=== PATIENT | male | born 2000 | race Caucasian/White ===

== ENCOUNTER 2022-08-26 22:58 | Emergency (ER) | payer OTHER, SELFPAY ==
[2022-08-26 23:03] VITALS: BP 136/94; PULSE 119; RESP 18; TEMP 37; O2SAT 96; BMI 36.8
--- NOTE | 2022-08-26 23:22 | ED_ITS ---
HPI - Extremity Injury (Lower) General Time Seen by Provider: 23:23 Date Seen: 08/26/22 Chief Complaint: Extremity Pain/Injury, Lower Stated Complaint: slapshot on left foot from hokey game. Time Seen by Provider: 08/26/22 23:18 Source: patient and RN notes reviewed Mode of arrival: wheelchair Limitations: no limitations History of Present Illness HPI Narrative: Sav is a very pleasant 22-year-old male who was playing hockey tonight when he took a slap shot from approximately a foot away into the dorsum of his left foot. He was able to continue to skate but notes that it was hard to bear weight after the game. He notes no other injury. He shows the pain to be at the very dorsum of the foot over the navicular and cuboid areas. He notes that movement or bearing weight definitely increases his pain. He has not yet taken anything for discomfort. Related Data Home Medications Medication Instructions Recorded Confirmed No Known Home Medications 08/26/22 08/26/22 Allergies Allergy/AdvReac Type Severity Reaction Status Date / Time azithromycin [From Zithromax] Allergy hives Verified 08/26/22 23:08 Review of Systems Status of ROS: Reports: 6 or more systems reviewed and unremarkable except as noted in History and below [facility] Medical History No significant past medical history Surgical History No significant past surgical history Social History Smoking Status: Never smoker Second hand tobacco smoke exposure: No How often do you have a drink containing alcohol: never AUDIT-C Alcohol total score: 0 Non-prescribed substance use: marijuana (any form) Exam Narrative: Exam Narrative: Patient is a very pleasant well-spoken young man. He is not in any acute distress. Examination of the left foot shows some erythema and mild edema noted over the navicular. I do not palpate any step-offs. No pain with palpation over the malleoli bilaterally. Mild discomfort noted over the lateral dorsal foot. Sensation and motor is intact. Const: Vital Signs, click to edit/add: Vital Signs - 24 hr 08/26/22 23:03 Temperature 98.6 F Pulse Rate [Left P ulse Oximeter] 119 H Respiratory Rate 18 Blood Pressure [Ri ght Upper Arm] 136/94 H Pulse Oximetry 96 Oxygen Delivery Me thod Room Air Documenting provider has reviewed patient's vital signs: yes Course Vital Signs Vital signs: Initial Vital Signs Temperature 98.6 F 08/26/22 23:03 Temperature Source Temporal Artery Scan 08/26/22 23:03 Pulse Rate 119 H 08/26/22 23:03 Respiratory Rate 18 08/26/22 23:03 Blood Pressure 136/94 H 08/26/22 23:03 Blood Pressure Mean 108 08/26/22 23:03 Blood Pressure Position Sitting 08/26/22 23:03 Pulse Oximetry 96 08/26/22 23:03 Oxygen Delivery Method 08/26/22 23:03 Vital Signs Temperature 98.6 F 08/26/22 23:03 Pulse Rate 119 H 08/26/22 23:03 Respiratory Rate 18 08/26/22 23:03 Blood Pressure 136/94 H 08/26/22 23:03 Pulse Oximetry 96 08/26/22 23:03 Oxygen Delivery Method 08/26/22 23:03 Temperature 98.6 F 08/26/22 23:03 Pulse Rate 119 H 08/26/22 23:03 Respiratory Rate 18 08/26/22 23:03 Blood Pressure 136/94 H 08/26/22 23:03 Pulse Oximetry 96 08/26/22 23:03 Oxygen Delivery Method 08/26/22 23:03 MDM - Extremity Injury (Lower) MDM Narrative Medical decision making narrative: 1. Soft tissue injury left foot-at this time no evidence of fracture. However he is having difficulties with weight-bearing. Will place him on crutches for the next 48 hours. He may use ibuprofen or Tylenol as needed for discomfort. Recommend elevation and icing when he is not active. Follow-up with orthopedics if he is not noting improvement over the next week. 2. Disposition-home back to [place]. Medical Records Attestation: I reviewed the patient's medical records. Imaging Data Left foot x-ray: Attestation: I have reviewed the pertinent imaging results. My impression: No obvious fractures Radiologist's impression: No acute fractures or malalignment. Bipartite lateral sesamoid. Joint spaces are maintained. Soft tissues are unremarkable. Discharge Plan Discharge Clinical Impression: Injury of foot, left Patient Disposition: Home, Self-Care Condition: Improved Additional Instructions: Crutches for the next 48 hours. You may bear some weight on the foot. Ibuprofen or Tylenol as needed for pain. If you are not improving I would like you to see Orthopedics. You may need another x-ray. The phone number to make an appointment is [phone]. Prescriptions: No Action No Known Home Medications Follow Up/Referrals: Provider,Not a Local [Primary Care Provider] - Stand Alone Forms: [facility] Info Instructions
--- NOTE | 2022-08-26 23:23 | CRLHL7_ITS ---
For Patients: As a result of the Century Cures Act, medical imaging exams and procedure reports are released immediately into your electronic medical record. You may view this report before your referring provider. If you have questions, please contact your health care provider. INDICATION: Trauma. TECHNIQUE: Left foot 3 views. COMPARISON: None. FINDINGS/IMPRESSION: No acute fractures or malalignment. Bipartite lateral sesamoid. Joint spaces are maintained. Soft tissues are unremarkable. Dictated by Phill Rayo MD @ 08/27/2022 12:16:40 AM (Electronically Signed)
[2022-08-27 01:01] VITALS: BP 125/84; PULSE 95; RESP 18; TEMP 36.6; O2SAT 96
[2022-08-27 01:03] VITALS: BP 125/84; PULSE 95; RESP 18; TEMP 36.6
--- NOTE | 2022-08-27 01:03 | ED.NURSE ---
pt. fitted with crutches and cam walker.
== END 2022-08-27 01:03 | disposition home or self-care (01) ==
PROVIDERS: Emergency Provider Family Medicine
DX: S90.32XA Contusion of left foot, initial encounter (principal); W21.220A Struck by ice hockey puck, initial encounter; Y93.22 Activity, ice hockey
CPT/HCPCS: 29505; 73630; 99283

== ENCOUNTER 2022-10-12 10:45 | Outpatient (RCR) | payer OTHER, SELFPAY | END 2023-02-22 23:59 | disposition home or self-care (01) | PROVIDERS: Visit Provider Physician Assistant Surgical | DX: M84.30XA Stress fracture, unspecified site, initial encounter for fracture (principal); Z51.89 Encounter for other specified aftercare | CPT/HCPCS: 97110; 97140; 97161; 97530 ==

== ENCOUNTER 2023-05-07 15:20 | Outpatient (CLI) | payer OTHER, SELFPAY ==
--- NOTE | 2023-05-07 15:30 | MR_ITS ---
[address] [address] Phone:?[phone] Fax:?[phone] Referring Physician Information: Henry Wilson [address] [facility] [address] Phone:?[phone] Fax:?[phone] Patient:?Sav Noe D.O.B:?2000 Sex:?Male Phone:?[phone] [facility] MRN:?[id number] Exam Date:?05/07/2023 EXAM: MRI OF THE LEFT ANKLE WITHOUT CONTRAST CLINICAL INFORMATION: Male, 22 years old, with ankle pain INDICATION: Foot pain, evaluate stress fracture PRIOR SURGERY: None reported. PLAIN FILMS: Radiograph 04/26/2023 COMPARISONS: No prior MRIs available. TECHNICAL INFORMATION: Using a 1.5T MR scanner and a localizing surface coil: sagittals: PD, T2, STIR coronals: PD, T2 axials: PD, T2FS SEDATION: None. CONTRAST: None. FINDINGS: Osseous structures: No stress/occult fracture or other marrow edema/pathology. Os trigonum: No os trigonum or abnormally prominent Stieda's process. Tarsal coalition: No calcaneonavicular, talocalcaneal or cubonavicular coalition. Tibiotalar joint: Effusion: Physiologic. Ganglion cyst: None. Osteochondral surfaces: No osteochondral abnormality. Loose bodies: No demonstrable loose bodies. Subtalar joint: Effusion: Physiologic. Articular cartilage: No osteochondral abnormality. Tarsal joints: Talonavicular: Unremarkable. Calcaneocuboid: Unremarkable. Naviculocuneiform: Unremarkable. Tarsometatarsal: Unremarkable. Ligaments: Syndesmotic ligaments:?The anterior and posterior inferior tibiofibular syndesmotic ligaments are normal. Lateral ligaments:?There is thickening and heterogeneity of the anterior talofibular proximal calcaneofibular ligament in keeping with residua of chronic incomplete sprain injury. The posterior talofibular ligament is intact. Deltoid ligament:?The visualized components of the superficial and deep deltoid ligament, specifically the tibiospring and posterior tibiotalar ligaments, are intact. Calcaneonavicular spring ligament:?The superomedial component of the calcaneonavicular spring ligament is grossly intact. Bifurcate and calcaneocuboid ligaments:?Intact lateral calcaneonavicular and medial calcaneocuboid ligaments. The dorsolateral calcaneocuboid ligament is intact. Tendons: Peroneal:?The peroneal tendons are appropriately situated within the retromalleolar groove and the superior peroneal retinaculum is intact. Normal thickness and signal intensity without tendinopathy, tenosynovitis, or split/tear. Flexor tendons:?The posterior tibialis, flexor digitorum and flexor hallucis longus tendons are intact. No significant tendinopathy and without tenosynovitis, tendon split or tendon disruption. Extensor tendons:?The anterior tibialis, extensor digitorum longus, and extensor hallucis longus tendons are intact. No significant tendinopathy and without tenosynovitis, tendon split or tendon disruption. Achilles:?Intact, without tendinopathy or tear. No retrocalcaneal or retro- Achilles bursitis. Sinus tarsi:?The sinus tarsi signal is normal. Plantar aponeurosis: There is no abnormal thickening of, abnormal intrasubstance signal involving, or perifascial edema about the plantar aponeurosis. Specifically, the plantar fascia origin appears normal in signal intensity and morphology. Plantar musculature:?The intrinsic foot musculature is normal in bulk and signal intensity without evidence of denervation atrophy. Neurovascular structures and tarsal tunnel: The posterior tibial neurovascular structures appear unremarkable coursing past the ankle and through the tarsal tunnel. IMPRESSION: 1. No stress/occult fracture or other marrow edema/pathology. No osteochondral lesion. 2. Residua of chronic incomplete sprain injuries of the anterior talofibular proximal calcaneofibular ligaments. Remaining medial and lateral ankle ligament images structures are intact. 3. Flexor, extensor, and peroneal tendons are intact. 4. Normal Achilles tendon and plantar fascia. KME Electronically signed on 05/07/2023 6:28:00 PM by Monse Douglass M.D.
== END 2023-05-07 15:21 | disposition home or self-care (01) ==
LOC: MRI 15:23
PROVIDERS: Visit Provider Physician Assistant Surgical
DX: M25.572 Pain in left ankle and joints of left foot (principal); S93.412A Sprain of calcaneofibular ligament of left ankle, initial encounter; S92.252A Displaced fracture of navicular [scaphoid] of left foot, initial encounter for closed fracture; M79.672 Pain in left foot
CPT/HCPCS: 73718